=== PATIENT | female | born 2000 | race African-American/Black ===

== ENCOUNTER 2019-05-10 13:02 | Emergency (ER) | payer OTHER ==
[~2019-05-10] VITALS: Ht 165.1 cm; Wt 81.6 kg
[2019-05-10] MEDS ORDERED: IBUPROFEN 400 MG TAB PO ONE (14:00)
--- NOTE | 2019-05-10 14:30 | Diagnostic Imaging Report ---
EXAMINATION: FOOT RIGHT COMPLETE INDICATION: Right foot pain COMPARISON: None FINDINGS: No acute fracture or dislocation. No substantial degenerative change. Alignment is anatomic. IMPRESSION: No acute osseous injury. Signed by: Sarai Fraga MD on 05/10/2019 2:27 PM
== END 2019-05-10 15:09 | disposition home or self-care (01) ==
LOC: ER 13:02
DX: S90.31XA Contusion of right foot, initial encounter (principal); W52.XXXA Crushed, pushed or stepped on by crowd or human stampede, initial encounter; Y92.488 Other paved roadways as the place of occurrence of the external cause
CPT/HCPCS: 99284